=== PATIENT | male | born 1995 | race African-American/Black ===

== ENCOUNTER → 2016-09-18 | Outpatient (REF) | payer OTHER | LOC: M SFHCLERA 09:28 | PROVIDERS: ATTEND Family Medicine | DX: F43.21 Adjustment disorder with depressed mood (principal); Z53.9 Procedure and treatment not carried out, unspecified reason ==

== ENCOUNTER → 2016-10-21 | Outpatient (REF) | payer OTHER | LOC: M SFHCLERA 09:40 | PROVIDERS: ATTEND Family Medicine | DX: F43.21 Adjustment disorder with depressed mood (principal) ==

== ENCOUNTER 2017-02-10 18:00 | Inpatient (IN) | payer OTHER ==
[~2017-02-10] VITALS: Ht 180.3 cm; Wt 74.8 kg
[2017-02-10] MEDS ORDERED: IBUP200C PO (18:26)
[2017-02-10] MEDS ORDERED: PARO-39 PO (18:26)
[2017-02-10] MEDS ORDERED: OXYCODONE/APAP 5MG/325MG(BULK FOR ED) 1 TABLET PO ONE (19:15)
[2017-02-10] MEDS ORDERED: IBUPROFEN 600 MG TAB PO ONE (19:15)
[2017-02-10] MEDS ORDERED: PERCOCET 5MG/325MG TAB As Ordered ONE (19:15)
[2017-02-10] MEDS ORDERED: NORCO, ANEXSIA 5/325MG TABLET (HYDROcodone/ACETAMINOPHEN) PO ONE (19:15)
[2017-02-10 19:33] LABS: BASO % 0.4 % (0.0-1.0); EOS # 0.1 K/mm3 (0.0-0.50); LARGE UNSTAINED CELL # 0.1 K/mm3 (0.0-0.4); LARGE UNSTAINED CELL % 1.5 % (0.0-4.0); LYMPH # 1.9 K/mm3 (1.5-6.5); MEAN CORPUSCULAR HEMOGLOBIN 28.3 pg (27.0-33.0); MEAN CORPUSCULAR VOLUME 85.6 fl (80.0-96.0); MONO # 0.2 K/mm3 (0.0-0.8); MONO % 3.1 % (0.0-5.0); NEUTROPHILS # 3.2 K/mm3 (1.8-7.7); PLATELET COUNT, AUTOMATED 257 k/mm3 (150-450); RED CELL DISTRIBUTION WIDTH 13.2 % (11.5-14.5); WHITE BLOOD COUNT 5.4 K/mm3 (4.0-10.0)
[2017-02-10 19:45] LABS: ANION GAP 8 MEQ/L (8-16); BLOOD UREA NITROGEN 7 MG/DL (7-18); CALCIUM LEVEL 9.8 MG/DL (8.5-10.1); CARBON DIOXIDE LEVEL 25 MEQ/L (21-32); CHLORIDE LEVEL 105 MEQ/L (98-107); CREATININE FOR GFR 1.09 MG/DL (0.70-1.30); GLOMERULAR FILTRATION RATE > 60.0 (>60); GLUCOSE, FASTING 85 MG/DL (70-105); POTASSIUM SERUM 3.9 MEQ/L (3.5-5.1); SODIUM LEVEL 138 MEQ/L (136-145)
[2017-02-10] MEDS ORDERED: NS 1,000 ML IV ONE (20:00)
[2017-02-10] MEDS ORDERED: ISOVUE-370 76% 100ML VIAL (Q9967) As Ordered ONE (20:09)
--- NOTE | 2017-02-10 20:40 | REPUSA ---
CT angiogram of the chest Clinical statement: Chest pain and shortness of breath. Elevated D dimer. Technique: Multiple axial CT images were obtained from the thoracic inlet through the upper abdomen a fter a bolus administration of nonionic intravenous contrast. Coronal and sagittal reconstructions we re also obtained. Comparison: None. Findings: The pulmonary arteries are well-opacified with contrast. There is a intraluminal filling de fect in the subsegmental branches the right lower lobe. The thoracic aorta is unremarkable. Thyroid g land is within normal limits. There is no thoracic lymphadenopathy. There are no pericardial or pleur al effusions. The lungs are clear. Limited imaging of the upper abdomen is unremarkable. There are no suspicious osseous lesions. Impression: Small embolism in a subsegmental branch of the right lower lobe. ER physician was notified of these findings at 8:38 PM on 02/10/2017.
--- NOTE | 2017-02-10 20:54 | ECGEPIP ---
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 Order Number: [id number] Reading MD: Luc Oviedo Measurements Intervals [place] Rate: 58 P: 6 DE: 146 QRS: 51 QRSD: 90 T: 35 QT: 399 QTc: 393 Interpretive Statements SINUS BRADYCARDIA WITH SINUS ARRHYTHMIA MINIMAL VOLTAGE CRITERIA FOR LVH, CONSIDER NORMAL VARIANT EARLY REPOLARIZATION NO PRIORS Electronically Signed On 02-10-2017 20:54:45 EDT by Luc Oviedo
[2017-02-10] MEDS ORDERED: IBUP-1114 PO (20:55)
[2017-02-10] MEDS ORDERED: APIXABAN 5 MG TAB (ELIQUIS) PO ONE (21:00)
[2017-02-10] MEDS ORDERED: PERCOCET 5MG/325MG TAB PO PRN (21:30)
[2017-02-10] MEDS ORDERED: ACETAMINOPHEN TAB 650MG DOSE (2X325MG) PO PRN (21:30)
[2017-02-10] MEDS ORDERED: BISACODYL 5 MG TAB PO PRN (21:30)
[2017-02-10] MEDS ORDERED: ONDANSETRON 4MG/2ML VIAL (J2405) IV PRN (21:30)
[2017-02-10] MEDS ORDERED: ELIQ5TAB PO (21:33)
[2017-02-10 21:58] LABS: INR 1.02
--- NOTE | 2017-02-10 22:03 | HPE ---
DATE OF ADMISSION: 02/10/2017 PRIMARY CARE PROVIDER: Dr. Poon CHIEF COMPLAINT: Chest pain. HISTORY OF PRESENT ILLNESS: The patient is a 21-year-old man who tells me that for the last two weeks he has been experiencing chest pain and tightness in the right side of his chest, as well as a pinching pain on the left side of his chest. He does complain of some associated shortness of breath. Denies taking any medication. He tells me that he has decreased his level of activity secondary to this, it hurts with deep inspiration. He is unable to do push-ups as he normally does. He denies any new medications. He does have tobacco use, a few cigarettes a day intermittently. He denies a family history of blood clots. PAST MEDICAL HISTORY: Depression. PAST SURGICAL HISTORY: None. ALLERGIES: No known drug allergies. HOME MEDICATIONS: - paroxetine 20 mg daily SOCIAL HISTORY: The patient is a casual smoker. Denies any alcohol or illicit drug use. He has a fiance. He lives with his brother, who is an active duty soldier. FAMILY HISTORY: His mother of cardiac in her 40s. He reports that she had numerous myocardial infarctions prior to her last one. REVIEW OF SYSTEMS: Negative other than history of present illness. PHYSICAL EXAMINATION: VITAL SIGNS: Temperature 99.3, pulse 82, respiratory 18, blood pressure 136/69, oxygen saturation 95% on room air. GENERAL: He is a young, pleasant, -[place]uvian male. Sitting up in bed. He does not appear to be in any acute distress. HEENT: Cranial nerves II through XII are grossly intact. He has moist mucous membranes. No elevation of central venous pressure. CARDIOVASCULAR EXAM: S1, S2 regular. He is not tachycardic. RESPIRATORY EXAM: Clear. There is tenderness to palpation at the left intercostal space. ABDOMINAL EXAM: Benign. EXTREMITIES: No clubbing, cyanosis or edema. LABORATORY DATA: WBC 5.4, hemoglobin 14.4, platelet count 257. Chemistry panel: Sodium 138, potassium 3.9, chloride 105, bicarbonate 25, BUN 7, creatinine 1.0. Two sets of cardiac enzymes negative. D-Dimer was elevated at 1162. IMAGING: The patient did have a CT angiography of the chest that revealed an embolism in the subsegmental branch of the right lower lobe. EKG revealed early repolarization. ASSESSMENT AND PLAN: This is a 21-year-old man with pleuritic chest pain and subsegmental pulmonary embolism. 1. Chest pain and pulmonary embolism. Given the patient's presenting symptoms and positive findings on laboratories and imaging, I suspect that the patient should be treated for pulmonary embolism. He will be started on Eliquis. Prescription has been sent to his pharmacy. Patient and family services (PFS) for prior authorization to be obtained. Given that his mother had numerous heart attacks and premature coronary artery disease and his current predicament, I will check an echocardiogram and admit him to the progressive care unit (PCU) and trend his cardiac enzymes. We will also check a duplex of the lower extremities. I have ordered a hypercoagulable workup to be drawn prior to his first administration of Eliquis. He should likely followup with desk top publisher after discharge. I will also check his urine toxicology. There is also the possibility that the patient's left sided chest pain and tenderness in the intercostal may be related to some costochondritis related to doing frequent push-ups. I will provide him with pain medication with ibuprofen and Percocet as needed. 2. Tobacco abuse. Cessation counseling offered. 3. Deep vein thrombosis (DVT) prophylaxis. The patient will be on Eliquis. DISPOSITION: The patient is admitted to the progressive care unit (PCU) to Dr. West's service, who will continue following the patient at 7:00 a.m.
--- NOTE | 2017-02-10 22:06 | REP ---
Clinical: Chest pain . Comparison: None . Technique: PA and lateral. Findings: The mediastinum and cardiac silhouette are normal. The lung merino are clear and without acute consolidation, effusion, or pneumothorax. The skeletal structures are intact and normal. Impression: 1. No acute cardiopulmonary process. Signed by Edinson Gandhi MD 02/10/2017 09:57 P
[2017-02-10 22:31] LABS: BASO % 0.4 % (0.0-1.0); EOS # 0.1 K/mm3 (0.0-0.50); EOS % 1.9 % (0.0-3.0); LARGE UNSTAINED CELL # 0.1 K/mm3 (0.0-0.4); LARGE UNSTAINED CELL % 1.9 % (0.0-4.0); LYMPH # 2.4 K/mm3 (1.5-6.5); LYMPH % 44.4 % (24.0-44.0); MEAN CORPUSCULAR HEMOGLOBIN 28.6 pg (27.0-33.0); MEAN CORPUSCULAR HGB CONC 32.9 g/dl (32.0-36.5); MEAN CORPUSCULAR VOLUME 86.9 fl (80.0-96.0); MONO # 0.2 K/mm3 (0.0-0.8); MONO % 4.1 % (0.0-5.0); NEUTROPHILS # 2.6 K/mm3 (1.8-7.7); NEUTROPHILS % 47.2 % (36.0-66.0); PLATELET COUNT, AUTOMATED 241 k/mm3 (150-450); RED CELL DISTRIBUTION WIDTH 13.2 % (11.5-14.5); WHITE BLOOD COUNT 5.4 K/mm3 (4.0-10.0)
[2017-02-10 22:47] LABS: ANION GAP 9 MEQ/L (8-16); BLOOD UREA NITROGEN 7 MG/DL (7-18); CALCIUM LEVEL 9.8 MG/DL (8.5-10.1); CARBON DIOXIDE LEVEL 23 MEQ/L (21-32); CHLORIDE LEVEL 106 MEQ/L (98-107); CREATININE FOR GFR 1.13 MG/DL (0.70-1.30); GLOMERULAR FILTRATION RATE > 60.0 (>60); GLUCOSE, FASTING 80 MG/DL (70-105); POTASSIUM SERUM 3.6 MEQ/L (3.5-5.1); SODIUM LEVEL 138 MEQ/L (136-145)
[2017-02-10 22:53] LABS: ERYTHROCYTE SEDIMENTATION RATE 7 mm/hr (0-15)
[2017-02-10 23:37] VITALS: BP 142/69
[2017-02-10] MEDS: IBUPROFEN 400 MG TAB PO SCH (23:47)
[2017-02-11 04:05] VITALS: BP 127/67
[2017-02-11] MEDS: IBUPROFEN 400 MG TAB PO SCH (07:21)
[2017-02-11 07:45] VITALS: BP 136/73
[2017-02-11] MEDS ORDERED: PERCOCET PO (08:02)
[2017-02-11] MEDS ORDERED: BISAC5TA PO (08:02)
--- NOTE | 2017-02-11 08:12 | REP ---
Clinical: Positive for PE. Technique: Reese scale and color Doppler evaluation using linear high frequency transducer. Findings: Ultrasound examination of the right and left lower extremity deep venous structures from the common femoral vein to the popliteal vein demonstrates normal compressibility flow and wave patterns in response to respiration and augmentation. There is no evidence for deep venous thrombosis. Impression: No evidence for deep venous thrombosis. Signed by Edinson Gandhi MD 02/11/2017 08:04 A
[2017-02-11] MEDS ORDERED: PARoxetine 20 MG TAB PO SCH (09:00)
[2017-02-11] MEDS ORDERED: APIXABAN 5 MG TAB (ELIQUIS) PO SCH (09:00)
--- NOTE | 2017-02-11 14:10 | DSES ---
DATE OF ADMISSION: 02/10/2017 DATE OF DISCHARGE: 02/11/2017 PRIMARY CARE PROVIDER: Dr. Poon PRIMARY DISCHARGE DIAGNOSES: 1. Small embolism in the subsegmental branch of the right lower lobe. 2. Negative deep vein thrombosis (DVT). DISCHARGE MEDICATIONS: - Eliquis 10 mg twice a day for seven days, 5 mg twice a day, one week supply was given as the patient has no insurance. The patient will need to followup with primary care provider for additional prescription coverage and assistance with Eliquis coverage. - oxycodone/acetaminophen 5/325 mg one tablet every four hours as needed, maximum daily dose of six, dispense #30 - bisacodyl 5 mg daily as needed for constipation, dispense #30 - paroxetine 20 mg daily HOSPITAL COURSE: This is a 21-year-old male with a history of depression who presents with chest pain, tightness right side of the chest with shortness of breath, found on CT to have a small subsegmental pulmonary embolism. He was started on Eliquis. Patient and family services (PFS) was consulted for a one-week free supply via marine geologist. Troponins were negative times four. Hypercoagulable workup pending.
[2017-02-12] MEDS ORDERED: COLA100C3 PO (03:12)
[2017-02-12] MEDS ORDERED: ZOFR4TAB3 PO (03:13)
--- NOTE | 2017-02-12 08:35 | ECGEPIP ---
Stationary ECG Study 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
[2017-02-13] MEDS ORDERED: COLA100C3 PO (14:33)
[2017-02-19 00:07] LABS: PROTEIN C ANTIGEN 78 % (60-150); PROTEIN S ANTIGEN FREE 131 % (57-157); PROTEIN S ANTIGEN TOTAL 101 % (60-150); SJOGREN'S ANTI SS-A <0.2 AI (0.0-0.9); SJOGREN'S ANTI SS-B <0.2 AI (0.0-0.9)
== END 2017-02-11 10:59 | disposition home or self-care (01) | DRG 134 ==
LOC: M ED 20:34 → M ED INP 21:30 → M PCU 23:30
PROVIDERS: ADMIT Internal Medicine; ATTEND General Practice
DX: I26.99 Other pulmonary embolism without acute cor pulmonale (principal); F17.200 Nicotine dependence, unspecified, uncomplicated; Z79.899 Other long term (current) drug therapy

== ENCOUNTER 2017-02-11 22:14 | Emergency (ER) | payer OTHER ==
[~2017-02-11] VITALS: Ht 180.3 cm; Wt 74.8 kg
[~2017-02-11 22:14] MED LIST: BISAC5TA PO; ELIQ5TAB PO; IBUP-1114 PO; IBUP200C PO; PARO-39 PO; PERCOCET PO
[2017-02-12] MEDS ORDERED: ONDANSETRON 4MG/2ML VIAL (J2405) IV ONE
[2017-02-12] MEDS ORDERED: NS 500 ML IV ONE
[2017-02-12 00:30] LABS: BASO % 0.2 % (0.0-1.0); EOS # 0.2 K/mm3 (0.0-0.50); LARGE UNSTAINED CELL # 0.1 K/mm3 (0.0-0.4); LARGE UNSTAINED CELL % 1.8 % (0.0-4.0); LYMPH # 1.8 K/mm3 (1.5-6.5); LYMPH % 39.9 % (24.0-44.0); MEAN CORPUSCULAR HEMOGLOBIN 28.4 pg (27.0-33.0); MEAN CORPUSCULAR HGB CONC 33.2 g/dl (32.0-36.5); MEAN CORPUSCULAR VOLUME 85.6 fl (80.0-96.0); MONO # 0.2 K/mm3 (0.0-0.8); NEUTROPHILS # 2.1 K/mm3 (1.8-7.7); PLATELET COUNT, AUTOMATED 223 k/mm3 (150-450); WHITE BLOOD COUNT 4.3 K/mm3 (4.0-10.0)
[2017-02-12] MEDS ORDERED: PERCOCET 5MG/325MG TAB PO ONE (00:30)
[2017-02-12] MEDS ORDERED: MAGNESIUM CITRATE 300 ML BTL PO ONE (00:45)
[2017-02-12] MEDS ORDERED: FLEET ENEMA PR ONE (00:45)
[2017-02-12 00:53] LABS: ALBUMIN 4.1 GM/DL (3.2-5.2); ALBUMIN/GLOBULIN RATIO 1.21 (1.00-1.93); ALKALINE PHOSPHATASE 99 U/L (45-117); ALT/SGPT 25 U/L (12-78); ANION GAP 7 MEQ/L (8-16); AST/SGOT 22 U/L (15-37); BILIRUBIN,TOTAL 0.4 MG/DL (0.2-1.0); BLOOD UREA NITROGEN 13 MG/DL (7-18); CALCIUM LEVEL 9.2 MG/DL (8.5-10.1); CARBON DIOXIDE LEVEL 27 MEQ/L (21-32); CHLORIDE LEVEL 105 MEQ/L (98-107); CREATININE FOR GFR 1.18 MG/DL (0.70-1.30); GLOMERULAR FILTRATION RATE > 60.0 (>60); GLUCOSE, FASTING 97 MG/DL (70-105); SODIUM LEVEL 139 MEQ/L (136-145); TOTAL PROTEIN 7.5 GM/DL (6.4-8.2)
--- NOTE | 2017-02-12 01:09 | REP ---
Clinical: Acute abdominal pain. Technique: Upright view of the chest with supine and upright views of the abdomen and pelvis. Findings: Frontal upright view of the chest demonstrates no acute cardiopulmonary process or free air below the diaphragm to suspect pneumoperitoneum. Supine and upright views of the abdomen and pelvis demonstrate nonspecific bowel gas pattern without obstruction or perforation. No organomegaly. No abnormal calcifications. Skeletal structures normal for age. Impression: Nonspecific bowel gas pattern. Signed by Edinson Gandhi MD 02/12/2017 01:00 A
[2017-02-12] MEDS ORDERED: COLA100C3 PO (03:12)
[2017-02-12] MEDS ORDERED: ZOFR4TAB3 PO (03:13)
[2017-02-12 03:14] VITALS: BP 122/65
[2017-02-13] MEDS ORDERED: ELIQ5TAB PO (14:31)
[2017-02-13] MEDS ORDERED: OXYC1TAB23 PO (14:33)
[2017-02-13] MEDS ORDERED: BISAC5TA PO (14:33)
[2017-02-13] MEDS ORDERED: PARO20TA3 PO (14:33)
[2017-02-13] MEDS ORDERED: COLA100C3 PO (14:33)
[2017-02-13] MEDS ORDERED: ZOFR4TAB3 PO (14:33)
== END 2017-02-12 03:44 | disposition home or self-care (01) ==
LOC: M ED 23:12
DX: K59.00 Constipation, unspecified (principal); I26.99 Other pulmonary embolism without acute cor pulmonale; F33.9 Major depressive disorder, recurrent, unspecified; F17.210 Nicotine dependence, cigarettes, uncomplicated; Z82.49 Family history of ischemic heart disease and other diseases of the circulatory system

== ENCOUNTER 2017-02-13 12:02 | Inpatient (IN) | payer MEDICAID, OTHER ==
[~2017-02-13] VITALS: Ht 175.3 cm; Wt 73.4 kg
[~2017-02-13 12:02] MED LIST changes: +COLA100C5 PO; -IBUP200C PO; +IBUP200C10 PO; -PARO-39 PO; +PARO20TA4 PO; +ZOFR4TAB3 PO
[2017-02-13] MEDS ORDERED: ASPIRIN 81 MG CHEW TABLET PO ONE (12:15)
[2017-02-13 12:38] LABS: BASO % 0.2 % (0.0-1.0); EOS # 0.1 K/mm3 (0.0-0.50); EOS % 3.8 % (0.0-3.0); LARGE UNSTAINED CELL # 0.1 K/mm3 (0.0-0.4); LARGE UNSTAINED CELL % 2.7 % (0.0-4.0); LYMPH # 1.6 K/mm3 (1.5-6.5); LYMPH % 43.4 % (24.0-44.0); MEAN CORPUSCULAR HEMOGLOBIN 28.6 pg (27.0-33.0); MEAN CORPUSCULAR HGB CONC 32.9 g/dl (32.0-36.5); MEAN CORPUSCULAR VOLUME 86.8 fl (80.0-96.0); MONO # 0.1 K/mm3 (0.0-0.8); NEUTROPHILS # 1.7 K/mm3 (1.8-7.7); NEUTROPHILS % 45.9 % (36.0-66.0); PLATELET COUNT, AUTOMATED 227 k/mm3 (150-450); RED CELL DISTRIBUTION WIDTH 12.8 % (11.5-14.5); WHITE BLOOD COUNT 3.6 K/mm3 (4.0-10.0)
[2017-02-13 13:06] LABS: ANION GAP 5 MEQ/L (8-16); BLOOD UREA NITROGEN 14 MG/DL (7-18); CARBON DIOXIDE LEVEL 28 MEQ/L (21-32); CHLORIDE LEVEL 107 MEQ/L (98-107); CREATININE FOR GFR 1.29 MG/DL (0.70-1.30); GLOMERULAR FILTRATION RATE > 60.0 (>60); GLUCOSE, FASTING 91 MG/DL (70-105); SODIUM LEVEL 140 MEQ/L (136-145)
[2017-02-13 14:20] LABS: MAGNESIUM LEVEL 2.3 MG/DL (1.8-2.4)
[2017-02-13] MEDS ORDERED: ELIQ5TAB PO (14:31)
[2017-02-13] MEDS ORDERED: BISAC5TA PO (14:33)
[2017-02-13] MEDS ORDERED: COLA100C5 PO (14:33)
[2017-02-13] MEDS ORDERED: ZOFR4TAB3 PO (14:33)
[2017-02-13] MEDS ORDERED: PARO20TA3 PO (14:33)
[2017-02-13] MEDS ORDERED: OXYC1TAB23 PO (14:33)
--- NOTE | 2017-02-13 14:43 | REP ---
REASON: Chest pain. COMPARISON: 02/13/2017. FINDINGS: The technique utilized in obtaining the radiograph has magnified the cardiac silhouette and accentuated the interstitial markings. The superior mediastinal structures are midline. The cardiac silhouette is unremarkable in size, shape, and position. The diaphragmatic surfaces of the lungs are regular, and the costophrenic angles are clear. The pulmonary merino are clear. The imaged osseous structures are intact. IMPRESSION: There is no acute cardiopulmonary disease. No change from prior exam. The cardiac silhouette is magnified by technique. Mild cardiomegaly could not be excluded by this portable exam. Signed by Sanjeev Fuentes DO 02/13/2017 03:23 P
[2017-02-13] MEDS ORDERED: BISACODYL 5 MG TAB PO PRN (17:15)
[2017-02-13] MEDS ORDERED: ONDANSETRON 4 MG ORAL DISINTEGRATING TAB (S0181) PO PRN (17:15)
--- NOTE | 2017-02-13 18:17 | HPEPDOC ---
General Date of Admission Feb 13, 2017 at 16:32 Primary Care Physician: ANNELIESE HORTON MD Attending Physician: FABRICIO RODRIGUEZ MD Chief Complaint The patient is a 21-year-old male admitted with a reason for visit of Syncope. Source: Patient, Other (girlfriend) Exam Limitations: No limitations History of Present Illness PRIMARY CARE PROVIDER: Dr. Anneliese Horton CHIEF COMPLAINT: multiple episodes of syncope chest pain/pressure HISTORY OF PRESENT ILLNESS: This is a 21-year-old -[place] male with a past medical history of anxiety, depression, PTSD, tobacco use disorder, and new/recent onset of pulmonary embolism diagnosed 02/10-02/11 [facility] hospitalization previously,who presents to [facility] ED for chief complaint of multiple episodes of "blacking out" as well as chest pain/pressure that has been worsening in intensity. States chest discomfort began last year in June and he informed his PCP Dr. Horton in between the months of August and November. PCP reportedly thought chest discomfort may have been due to anxiety and had started patient on Paxil 10 mg. Patient has been compliant with his medication, and is still taking this medication. States this does not help his chest discomfort as he thought it would have and has even been given an increased dose of 20 mg which he still is taking. Patient reports that it wasn' t until about 3 weeks ago that he had developed chest pain along with his original chest discomfort. States his chest pain comes on with deep inspiration , coughing, sneezing, reaching out for objects. Pain is a throbbing and pressure like pain that does not radiate anywhere. It is located in his left anterior chest as well as his mid-chest. Pain at times subsides after taking ibuprofen. However, now, patient reports that pain is even sometimes uncontrolled with Percocet. Patient's girlfriend reports that she can even see patient's left-sided chest with "physical palpitations." States he also had an episode of passing out on the stairs one time in his house and was lying down on the platform with his legs on the platform and his on the last 3 steps. This occurred randomly within the last few weeks. He then messaged friend to bring him to the emergency department on February 10. Patient was found to have pleuritic chest pain at that time, and a pulmonary embolism of the subsegmental branch of the right lower lobe of the lung on CT angiography of the chest. His d -dimer was elevated at 1162. A duplex ultrasound of the lower extremities had shown no evidence of DVT. Troponins were negative 4. Hypercoagulable workup was done and is pending now. Patient was started on eliquis prior to discharge on February 11. When patient had gotten home, he threw up his breakfast, drank water, sat down, became lightheaded, and passed out in his bedroom for 1-2 hours after he woke up in a sweat and with sore muscles in his upper extremities , gluteus muscles and thighs. Today, patient states that he passed out at a bank in his car around 11 AM. States after leaving the bank, his legs were feeling weak and when he got into the car, he had turned the rudolph for his girlfriend to start the car, and he felt exhausted, and blacked out. His girlfriend reports the patient had blacked out and lost consciousness around 3-4 in the car. Then, girlfriend brought the patient into the [facility] ED. Patient had been given 1 dose of 324 mg of aspirin chewable tablet once. Girlfriend also reports that after last hospitalization, the IV site began to profusely bleed and was not clotting on his left arm, and his bandage was soaked with blood. Patient also states that his legs are weaker, he feels shaky at times, has chest pressure, he feels tired and weak,. He goes in and out of consciousness. Girlfriend states that patient becomes a bit confused after waking up and there is lapse of time with some delay in his thoughts/speech. Girlfriend denies witnessing any movement of the patient's extremities when he blacks out or passes out. Patient and girlfriend deny any bowel or bladder incontinence. Denies any focal neurologic deficits such as blurred vision or unilateral weakness of any extremity. Denies facial droop, denies blurry vision , denies having any other recent falls that he can recall. Patient admits that he feels his jaw trembling today. Patient states that he is out of work for health issues. Patient admits to shortness of breath currently and does not recall when that began. Admits to feeling dizzy at times. Denies dizziness currently. In addition, patient reports wiping some blood on the toilet paper after a bowel movement at times, but not all the time. Currently, denies fevers , chills, nausea, vomiting, abdominal pain, diarrhea, weakness in extremities now, runny nose, sore throat, cough, urinary symptoms: polyuria. Admits to feeling a little thirsty. Admits he stays well hydrated with gatorade and other liquid drinks. In addition, admits to feeling pressure in his head and having a headache that radiates all around his head and to the back of his neck especially the L side of the neck. Denies neck stiffness. Admits that he believes he's gotten both meningitis shots. Last but not least, patient admits that he feels dizzy when getting up from the bed or a chair at times. This dizziness began 4 days ago when patient was admitted to [facility] on 02/10/17. HOME MEDICATIONS: Eliquis was 5 mg tablet by mouth as directed, 10 mg twice a day for 7 days, then 5 mg twice per day Percocet 5 mg/325 mg tablet 1 tab by mouth every 4 hours when necessary for moderate pain, not to exceed 6 per day Bisacodyl 5 mg tablet by mouth daily when necessary constipation Docusate sodium 100 mg capsule by mouth daily Zofran 4 mg tablet by mouth every 4 hours when necessary nausea Fluoxetine hydrochloride 20 mg tab by mouth daily ALLERGIES: No known drug allergies. PAST MEDICAL HISTORY: Anxiety Depression PTSD Tobacco use disorder Pulmonary embolism new-onset on Eliquis 02/10/17 PAST SURGICAL HISTORY: None. SOCIAL HISTORY: Smokes a few cigarettes casually. Admits to drinking EtOH to 3 times a month. Admits to smoking marijuana only 1 time a day for at most 5 days in a week. Denies any other illicit drug use. Has a girlfriend. Lives with his brother who is an active duty soldier. FAMILY HISTORY: Mother: from an RI at age 48, reportedly has a history of numerous myocardial infarctions prior to her last one. Strokes and MIs to run in the family. Brother: Has a heart murmur CODE STATUS: FULL CODE Review of systems are negative except for those stated above. PHYSICAL EXAMINATION: Vitals: T: 97.9 BP: 156/99 RR: 20 P: 71 O2 Saturation: 97% room air General: Awake, alert, oriented 3. Pleasant and cooperative young adults male. Resting comfortably in bed in no acute distress. HEENT: Head: normocephalic, atraumatic. Eyes: PERRL, sclera are nonicteric. Ears: TMs intact with normal light reflex bilaterally. Nose: No external lesions , Throat: no pharyngeal erythema or exudates, moist buccal mucosa. Tongue is a bit white. Neck: Supple. Normal ROM. No cervical LAD bilaterally and no thyromegaly. + Tenderness to palpation of his paraspinal muscles especially on the L paraspinal muscles of neck. Tense and tight paraspinal muscles on the L side. Respiratory: clear to auscultation bilaterally with no wheezes, rales, or rhonchi. Cardiovascular: regular rate and rhythm, with no murmurs, rubs or gallops. No murmurs appreciated at aortic, pulmonic, tricuspid, or mitral areas. Chest: Symmetrical chest rise bilaterally. +Reproducible tenderness to palpation of L anterior chest wall, but pressing on anterior chest reproduces pain deeper in the lateral L chest. Abdomen: soft and a bit tense (likely due to muscular exercise), nondistended, no hepatosplenomegaly appreciated. Bowel sounds present. +Tenderness to palpation of the LLQ and mid-abdomen--nonspecific. No rebound or guarding. Extremities: 5/5 strength in upper and lower extremities bilaterally, no swelling in either lower extremity bilaterally. Musculoskeletal: normal ROM. Neurological: CN 2-12 intact bilaterally. No focal neurologic deficits appreciated. Integumentary: skin free from rashes, lesions, abrasions Vascular: +2 radial and dorsalis pedis pulses palpable and symmetrical bilaterally LABORATORY DATA: Significant WBC 3.6, hemoglobin of 13.6, neutropenia of 1.7, eosinophilia of 2.8 , CPK of 397. Troponin was negative 1. BNP was less than 5.0 Urine drug tox pending. ELECTROCARDIOGRAM: Showed sinus rhythm, minimal voltage criteria for left ventricular hypertrophy or normal variant, early repolarization, and a ventricular rate of 63 bpm. Borderline EKG. Personally reviewed. RADIOLOGY: CT of the head and chest x-ray were both negative. ASSESSMENT: This is a 21-year-old male with past medical history significant for anxiety, depression, PTSD, tobacco use disorder, and pulmonary embolism diagnosed on February 10 to February 11 hospitalization at [facility], who is presenting again to [facility] for several random syncopal episodes and worsening anterior and left-sided chest pressure/pain. PLAN: 1. Syncope: Admit to PCU with automatic dry starch operator. Obtain CT scan of the head without contrast. Obtain echocardiogram, EEG, orthostatics, EKG tomorrow morning , and cycle cardiac markers 2 more times. Every 6-8 hours. 2. Chest pain: Atypical angina. Rule out ACS. Obtain 2 more sets of cardiac markers. Troponin negative 1. CK-MB negative 1. CPK elevated at 397. Obtain urine toxicology screen as well as symptoms can be due to drug-related toxicity. 3. Pulmonary embolism: Hemodynamically stable. Coagulopathy workup pending from last admission. Continue eliquis. 4. Elevated CPK: Patient is reported to work out and exercise a lot. Return CPK level daily. Elevated CPK can be secondary to PE. 5. Pancytopenia, anemia, neutropenia: Hemoglobin of 13.6, WBC of 3.6, neutropenia 1.7, We'll obtain iron studies, vitamin B12 level, folate level, fecal occult blood test, and a peripheral smear. 6. Anxiety/Depression/PTSD: Continue Paxil. 7. Tobacco use disorder: Plan to consult for smoking cessation. 8. Continue home medications. DVT prophylaxis: Request Immunizations as per protocol FULL CODE STATUS My preceptor for this patient encounter was Dr. Fabricio Rodriguez, and was physically present in the building during the encounter and was fully available. As needed , all aspects of the patient interview, examination, medical decision making process, and medical care plan development were reviewed and approved by the preceptor. Preceptor is aware and concurs with the plan as stated in the body of this note and will attest to such by his/her cosignature. Home Medications Scheduled Apixaban Base (Eliquis) 5 Mg Tab, 10 MG PO BID, (Reported) FILLED 02/11/17, TAKE 10MG BID FOR 7 DAYS THEN TAKE 5MG BID Docusate Sodium (Colace) 100 Mg Cap, 100 MG PO DAILY, (Reported) Paroxetine (Paroxetine HCl) 20 Mg Tab, 20 MG PO DAILY, (Reported) Scheduled PRN Bisacodyl (Bisacodyl EC) 5 Mg Tab, 5 MG PO DAILY PRN for CONSTIPATION, (Reported ) Ondansetron (Zofran Odt) 4 Mg Tab, 4 MG PO Q4H PRN for NAUSEA, (Reported) Oxycodone/Acetaminophen (Oxycodone/Acetaminophen 5-325 mg) 1 Tab Tab, 1 TAB PO Q4H PRN for PAIN, (Reported) Allergies Coded Allergies: No Known Allergies (Unverified , 02/13/17) Vital Signs Vital Signs Date Time Temp Pulse Resp B/P (MAP) Pulse Ox O2 Delivery O2 Flow Rate FiO2 02/13/17 17:47 60 18 02/13/17 17:41 143/72 (95) 02/13/17 14:17 96 02/13/17 12:14 97.9 Room Air Laboratory Data Labs 24H Laboratory Tests 2 02/13/17 12:22: White Blood Count 3.6L, Red Blood Count 4.75, Hemoglobin 13.6L, Hematocrit 41.2L , Mean Corpuscular Volume 86.8, Mean Corpuscular Hemoglobin 28.6, Mean Corpuscular Hemoglobin Concent 32.9, Red Cell Distribution Width 12.8, Platelet Count 227, Neutrophils (%) (Auto) 45.9, Lymphocytes (%) (Auto) 43.4, Monocytes ( %) (Auto) 4.0, Eosinophils (%) (Auto) 3.8H, Basophils (%) (Auto) 0.2, Neutrophils # (Auto) 1.7L, Lymphocytes # (Auto) 1.6, Monocytes # (Auto) 0.1, Eosinophils # (Auto) 0.1, Basophils # (Auto) 0.0, Large Unclassified Cells % 2.7 , Large Unclassified Cells # 0.1, Anion Gap 5L, Glomerular Filtration Rate > 60.0, Blood Urea Nitrogen 14, Creatinine 1.29, Sodium Level 140, Potassium Level 4.0, Chloride Level 107, Carbon Dioxide Level 28, Calcium Level 9.0, Total Creatine Kinase 397H, Magnesium Level 2.3, Creatine Kinase MB 1.2, Creatine Kinase MB Relative Index 0.30, Troponin I < 0.02, B-Type Natriuretic Peptide < 5.0 CBC/BMP Laboratory Tests 02/13/17 12:22 Red Blood Count 4.75, Mean Corpuscular Volume 86.8, Mean Corpuscular Hemoglobin 28.6, Mean Corpuscular Hemoglobin Concent 32.9, Red Cell Distribution Width 12.8 , Neutrophils (%) (Auto) 45.9, Lymphocytes (%) (Auto) 43.4, Monocytes (%) (Auto ) 4.0, Eosinophils (%) (Auto) 3.8 H, Basophils (%) (Auto) 0.2, Neutrophils # ( Auto) 1.7 L, Lymphocytes # (Auto) 1.6, Monocytes # (Auto) 0.1, Eosinophils # ( Auto) 0.1, Basophils # (Auto) 0.0, Calcium Level 9.0, Total Creatine Kinase 397 H Plan / VTE VTE Prophylaxis Ordered?: No (patient on eliquis) LOUISE CARBALLO OGME-1 Feb 13, 2017 18:17
--- NOTE | 2017-02-13 18:31 | REP ---
CT Head without contrast HISTORY: Syncope COMPARISON: None There is no intraparenchymal hemorrhage, acute infarct, mass or midline shift. The ventricular system is normal in appearance. Cavum septi pellucidi and vergae are present. There is no extra cerebral collection. There is no fracture. The visualized sinuses are clear. IMPRESSION: There is no intracranial lesion. Signed by Prudencio Silver MD 02/13/2017 06:23 P
[2017-02-13 18:37] LABS: METHADONE URINE NEGATIVE (NEGATIVE)
[2017-02-13] MEDS: APIXABAN 5 MG TAB (ELIQUIS) PO SCH (19:46)
[2017-02-13] MEDS: PERCOCET 5MG/325MG TAB PO PRN ×2 (19:47→23:49)
[2017-02-13 19:52] VITALS: BP_SYST 134; BP_SYST 139; BP_SYST 145; BP_DIAS 65; BP_DIAS 69
[2017-02-13 20:20] LABS: RETIC HEMOGLOBIN CONTENT CHr 30.7 PG (24-36); RETICULOCYTE ABSOLUTE ADVIA212 73 x10(9)/L (17-77)
[2017-02-13 20:27] LABS: REASON FOR REVIEW COMPREHENSIVE REVIEW
[2017-02-13 20:42] LABS: PERCENT SATURATION 28.4 % (19.7-37.4)
[2017-02-14 00:02] VITALS: BP 149/87
[2017-02-14 04:12] VITALS: BP 127/67
[2017-02-14 04:20] LABS: BASO % 0.5 % (0.0-1.0); EOS # 0.2 K/mm3 (0.0-0.50); EOS % 4.6 % (0.0-3.0); LARGE UNSTAINED CELL # 0.1 K/mm3 (0.0-0.4); LARGE UNSTAINED CELL % 2.3 % (0.0-4.0); LYMPH # 1.9 K/mm3 (1.5-6.5); LYMPH % 52.2 % (24.0-44.0); MEAN CORPUSCULAR HEMOGLOBIN 28.4 pg (27.0-33.0); MEAN CORPUSCULAR HGB CONC 32.5 g/dl (32.0-36.5); MEAN CORPUSCULAR VOLUME 87.5 fl (80.0-96.0); MONO # 0.2 K/mm3 (0.0-0.8); MONO % 4.4 % (0.0-5.0); NEUTROPHILS # 1.3 K/mm3 (1.8-7.7); NEUTROPHILS % 36.1 % (36.0-66.0); PLATELET COUNT, AUTOMATED 224 k/mm3 (150-450); RED CELL DISTRIBUTION WIDTH 12.9 % (11.5-14.5); WHITE BLOOD COUNT 3.7 K/mm3 (4.0-10.0)
[2017-02-14 04:35] LABS: ALBUMIN 3.7 GM/DL (3.2-5.2); ALBUMIN/GLOBULIN RATIO 1.03 (1.00-1.93); ALKALINE PHOSPHATASE 96 U/L (45-117); ALT/SGPT 26 U/L (12-78); ANION GAP 6 MEQ/L (8-16); AST/SGOT 20 U/L (15-37); BILIRUBIN,TOTAL 0.2 MG/DL (0.2-1.0); BLOOD UREA NITROGEN 12 MG/DL (7-18); CALCIUM LEVEL 8.3 MG/DL (8.5-10.1); CARBON DIOXIDE LEVEL 28 MEQ/L (21-32); CHLORIDE LEVEL 106 MEQ/L (98-107); CREATININE FOR GFR 1.24 MG/DL (0.70-1.30); GLOMERULAR FILTRATION RATE > 60.0 (>60); GLUCOSE, FASTING 83 MG/DL (70-105); SODIUM LEVEL 140 MEQ/L (136-145); TOTAL PROTEIN 7.3 GM/DL (6.4-8.2)
--- NOTE | 2017-02-14 07:27 | ECGEPIP ---
Stationary ECG Study [facility] - ED Test Date: 2017-02-13 Pat Name: PARADISE CRAFT Department: Room: - Gender: M Patient Services Representative: peggy : 1995 Requested By: MARIA ESTHER Prieto Order Number: [id number] Reading MD: Jesenia Og Measurements Intervals [place] Rate: 63 P: 60 AR: 166 QRS: 31 QRSD: 99 T: 41 QT: 393 QTc: 405 Interpretive Statements SINUS RHYTHM MINIMAL VOLTAGE CRITERIA FOR LVH, CONSIDER NORMAL VARIANT EARLY REPOLARIZATION INCREASED RATE 02/10/17 Electronically Signed On 02-14-2017 7:27:00 EDT by Jesenia Og
[2017-02-14] MEDS: APIXABAN 5 MG TAB (ELIQUIS) PO SCH ×2 (08:49→19:29)
[2017-02-14] MEDS ORDERED: DOCUSATE SODIUM 100 MG CAP PO SCH (09:00)
[2017-02-14] MEDS ORDERED: PARoxetine 20 MG TAB PO SCH (09:00)
[2017-02-14] MEDS: PERCOCET 5MG/325MG TAB PO PRN ×2 (09:36→16:58)
[2017-02-14 13:45] VITALS: BP_SYST 139; BP_SYST 144; BP_SYST 149; BP_DIAS 80; BP_DIAS 86
[2017-02-14 16:00] VITALS: BP 167/77
[2017-02-14] MEDS ORDERED: PARoxetine 20 MG TAB PO ONE (17:00)
--- NOTE | 2017-02-14 19:03 | IPNPDOC ---
Subjective Date Seen The patient was seen on 02/14/17. Subjective Chief Complaint/HPI The patient is a 21-year-old male admitted with a reason for visit of Syncope. General: Reports: Chills Assessment /Plan Plan/VTE VTE Prophylaxis Ordered?: No (patient on eliquis) VS, I&O, 24H, Fishbone Vital Signs/I&O Vital Signs Date Time Temp Pulse Resp B/P (MAP) Pulse Ox O2 Delivery O2 Flow Rate FiO2 02/14/17 17:28 20 Room Air 02/14/17 16:00 98.7 72 167/77 (107) 99 I&O- Last 24 Hours up to 6 AM 02/14/17 06:00 Intake Total 960 ml Output Total 250 ml Balance 710 ml Laboratory Data 24H LABS Laboratory Tests 2 02/13/17 19:58: Differential Slide Review Report, Differential Pathologist's Review COMPREHENSIVE REVIEW, Peripheral Blood Smear Path Consult PERIPHERAL SMEAR, Absolute Reticulocyte Count 73, Percent Reticulocyte Count 1.50, Reticulocyte Hgb Content (CHr) 30.7, Iron Level 97, Total Iron Binding Capacity 341, Transferrin % Saturation 28.4, Ferritin 71, Total Creatine Kinase 391H, Creatine Kinase MB 1.4, Creatine Kinase MB Relative Index 0.35, Troponin I < 0.02 02/14/17 03:48: Total Creatine Kinase 334H, Creatine Kinase MB 1.4, Creatine Kinase MB Relative Index 0.41, Troponin I < 0.02, Anion Gap 6L, Glomerular Filtration Rate > 60.0, Blood Urea Nitrogen 12, Creatinine 1.24, Sodium Level 140, Potassium Level 4.0, Chloride Level 106, Carbon Dioxide Level 28, Calcium Level 8.3L, Aspartate Amino Transf (AST/SGOT) 20, Alanine Aminotransferase (ALT/SGPT) 26, Alkaline Phosphatase 96, Total Bilirubin 0.2, Total Protein 7.3, Albumin 3.7, Magnesium Level 2.0, Albumin/Globulin Ratio 1.03 02/14/17 03:49: White Blood Count 3.7L, Red Blood Count 4.68, Hemoglobin 13.3L, Hematocrit 40.9L , Mean Corpuscular Volume 87.5, Mean Corpuscular Hemoglobin 28.4, Mean Corpuscular Hemoglobin Concent 32.5, Red Cell Distribution Width 12.9, Platelet Count 224, Neutrophils (%) (Auto) 36.1, Lymphocytes (%) (Auto) 52.2H, Monocytes (%) (Auto) 4.4, Eosinophils (%) (Auto) 4.6H, Basophils (%) (Auto) 0.5, Neutrophils # (Auto) 1.3L, Lymphocytes # (Auto) 1.9, Monocytes # (Auto) 0.2, Eosinophils # (Auto) 0.2, Basophils # (Auto) 0.0, Large Unclassified Cells % 2.3 , Large Unclassified Cells # 0.1 CBC/BMP Laboratory Tests 02/14/17 03:48 Calcium Level 8.3 L, Aspartate Amino Transf (AST/SGOT) 20, Alanine Aminotransferase (ALT/SGPT) 26, Total Creatine Kinase 334 H, Alkaline Phosphatase 96, Total Bilirubin 0.2, Total Protein 7.3, Albumin 3.7 02/14/17 03:49 Red Blood Count 4.68, Mean Corpuscular Volume 87.5, Mean Corpuscular Hemoglobin 28.4, Mean Corpuscular Hemoglobin Concent 32.5, Red Cell Distribution Width 12.9 , Neutrophils (%) (Auto) 36.1, Lymphocytes (%) (Auto) 52.2 H, Monocytes (%) ( Auto) 4.4, Eosinophils (%) (Auto) 4.6 H, Basophils (%) (Auto) 0.5, Neutrophils # (Auto) 1.3 L, Lymphocytes # (Auto) 1.9, Monocytes # (Auto) 0.2, Eosinophils # (Auto) 0.2, Basophils # (Auto) 0.0 LOUISE MIGUEL MD Feb 14, 2017 19:03
[2017-02-14 19:52] VITALS: BP 147/80
--- NOTE | 2017-02-14 20:37 | IPNPDOC ---
Subjective Date Seen The patient was seen on 02/14/17. Subjective Chief Complaint/HPI The patient is a 21-year-old male admitted with a reason for visit of Syncope. Events since last encounter Patient reports still having some chest tightness. Patient points to the center of his chest. He states it occurs sometimes with his heartbeat. Rates the tightness at 5 out of 10. Says it has been 6 out of 10 before. Patient also complains of left chest pain. He is able to re-created when he pushes on it. Patient did complain of some shortness of breath and hurts with full breath. Shortness of breath is improved since being in the ER. Patient denies nausea at this time. No vomiting in the ER. Patient's very tired and did not sleep well last night. General: Denies: Chills Constitutional: Denies: Chills, Fever Eyes: Denies: Vision change ENT: Denies: Head Aches Skin: Denies: Rash, Lesions Pulmonary: Denies: Cough Cardiovascular: Reports: Chest Pain (left side), Denies: Palpitations Gastrointestinal: Denies: Nausea, Vomiting, Abdominal Pain Genitourinary: Denies: Dysuria, Frequency Neurological: Denies: Weakness, Numbness, Change in speech, Confusion Psych: Reports: Mood Normal Objective Physical Examination General Exam: Positive: Alert, Cooperative, No Acute Distress Eye Exam: Positive: PERRLA, EOMI ENT Exam: Positive: Atraumatic, Mucous membr. moist/pink Neck Exam: Positive: Supple, Negative: JVD, thyromegaly Chest Exam: Positive: Clear to auscultation, Normal air movement Heart Exam: Positive: Rate Normal, Normal S1, Normal S2, Negative: Murmurs, Rubs Telemetry: Positive: No significant arrhythmia Abdomen Exam: Positive: Normal bowel sounds, Soft, Negative: Tenderness, Hepatospenomegaly Extremity Exam: Positive: Normal pulses, Negative: Clubbing, Cyanosis, Edema Skin Exam: Positive: Nl turgor and temperature, Negative: Rash, Breakdown Neuro Exam: Positive: Normal Gait, Normal Speech Psych Exam: Positive: Mental status NL, Oriented x 3 Assessment /Plan Assessment Had lengthy discussion with patient regarding workup for syncope and next steps. Patient was starting school for the summer on Thursday and was concerned with this. Patient had previously taken off time for anxiety depression. Patient was worried about taking the Paxil. Patient has been regular taking Paxil was worried now that he has a pulmonary embolism. Also discussed causes of pulmonary embolism and treatment of clot. Discussed with patient why Paxil may be beneficial to him. Patient agreed to restarting the Paxil. Patient initially refused Paxil today. Problems (1) Syncope Status: Acute Problem Text: Patient had reported blacking outs are passing out several times previous day. Has not happened since being in the ER. Patient was very fatigued due to not sleeping well. Denies lightheadedness and dizziness on exam. Patient doesn't have any significant past medical history to indicate causes syncope. Echocardiogram was ordered as well as an EEG. Results are pending. (2) Chest pain Status: Acute Problem Text: Initial cardiac labs were negative as well as repeats. Initial EKG did show early repolarization. Patient's mother of a myocardial infarction when patient was 6 years old. (3) Pulmonary embolism Problem Text: Patient was recently admitted to [facility] and diagnosed with pulmonary embolism on CTA. Patient was started on Elliquis. (4) Constipation Status: Acute Problem Text: Patient reports having a history of constipation and sometimes takes medications to help with this. Continue patient's home medications as needed. (5) Depression Problem Text: Patient had been on Paxil for several months for depression and adjustment disorder. Had lengthy discussion with patient today regarding patient 's past. Patient reported having mother diet very early in life. He also reported last year having his roommate while in college. This on top of going back to college and restarting his life has been very stressful and anxiety provoking last few months. She went on to PCP for some help the prescribed Paxil. Patient initially refused Paxil today but after discussion patient agreed to restarting Paxil and continuing at this time. Plan/VTE VTE Prophylaxis Ordered?: Yes (patient on eliquis) VS, I&O, 24H, Fishbone Vital Signs/I&O Vital Signs Date Time Temp Pulse Resp B/P (MAP) Pulse Ox O2 Delivery O2 Flow Rate FiO2 02/14/17 09:36 18 Room Air 02/14/17 08:57 02/14/17 08:46 98.0 62 100 I&O- Last 24 Hours up to 6 AM 02/14/17 06:00 Intake Total 960 ml Output Total 250 ml Balance 710 ml Laboratory Data 24H LABS Laboratory Tests 2 02/13/17 12:22: White Blood Count 3.6L, Red Blood Count 4.75, Hemoglobin 13.6L, Hematocrit 41.2L , Mean Corpuscular Volume 86.8, Mean Corpuscular Hemoglobin 28.6, Mean Corpuscular Hemoglobin Concent 32.9, Red Cell Distribution Width 12.8, Platelet Count 227, Neutrophils (%) (Auto) 45.9, Lymphocytes (%) (Auto) 43.4, Monocytes ( %) (Auto) 4.0, Eosinophils (%) (Auto) 3.8H, Basophils (%) (Auto) 0.2, Neutrophils # (Auto) 1.7L, Lymphocytes # (Auto) 1.6, Monocytes # (Auto) 0.1, Eosinophils # (Auto) 0.1, Basophils # (Auto) 0.0, Large Unclassified Cells % 2.7 , Large Unclassified Cells # 0.1, Anion Gap 5L, Glomerular Filtration Rate > 60.0, Blood Urea Nitrogen 14, Creatinine 1.29, Sodium Level 140, Potassium Level 4.0, Chloride Level 107, Carbon Dioxide Level 28, Calcium Level 9.0, Total Creatine Kinase 397H, Magnesium Level 2.3, Creatine Kinase MB 1.2, Creatine Kinase MB Relative Index 0.30, Troponin I < 0.02, B-Type Natriuretic Peptide < 5.0 02/13/17 18:07: Urine Amphetamines Screen NEGATIVE, Urine Benzodiazepines Screen NEGATIVE, Urine Opiates Screen NEGATIVE, Urine Methadone Screen NEGATIVE, Urine Barbiturates Screen NEGATIVE, Urine Phencyclidine Screen NEGATIVE, Urine Cocaine Metabolite Screen NEGATIVE, Urine Cannabinoids Screen POSITIVEH 02/13/17 19:58: Total Creatine Kinase 391H, Creatine Kinase MB 1.4, Creatine Kinase MB Relative Index 0.35, Troponin I < 0.02, Differential Slide Review Report, Differential Pathologist's Review COMPREHENSIVE REVIEW, Peripheral Blood Smear Path Consult PERIPHERAL SMEAR, Absolute Reticulocyte Count 73, Percent Reticulocyte Count 1.50, Reticulocyte Hgb Content (CHr) 30.7, Iron Level 97, Total Iron Binding Capacity 341, Transferrin % Saturation 28.4, Ferritin 71 02/14/17 03:48: Anion Gap 6L, Glomerular Filtration Rate > 60.0, Blood Urea Nitrogen 12, Creatinine 1.24, Sodium Level 140, Potassium Level 4.0, Chloride Level 106, Carbon Dioxide Level 28, Calcium Level 8.3L, Total Creatine Kinase 334H, Magnesium Level 2.0, Creatine Kinase MB 1.4, Creatine Kinase MB Relative Index 0.41, Troponin I < 0.02, Aspartate Amino Transf (AST/SGOT) 20, Alanine Aminotransferase (ALT/SGPT) 26, Alkaline Phosphatase 96, Total Bilirubin 0.2, Total Protein 7.3, Albumin 3.7, Albumin/Globulin Ratio 1.03 02/14/17 03:49: White Blood Count 3.7L, Red Blood Count 4.68, Hemoglobin 13.3L, Hematocrit 40.9L , Mean Corpuscular Volume 87.5, Mean Corpuscular Hemoglobin 28.4, Mean Corpuscular Hemoglobin Concent 32.5, Red Cell Distribution Width 12.9, Platelet Count 224, Neutrophils (%) (Auto) 36.1, Lymphocytes (%) (Auto) 52.2H, Monocytes (%) (Auto) 4.4, Eosinophils (%) (Auto) 4.6H, Basophils (%) (Auto) 0.5, Neutrophils # (Auto) 1.3L, Lymphocytes # (Auto) 1.9, Monocytes # (Auto) 0.2, Eosinophils # (Auto) 0.2, Basophils # (Auto) 0.0, Large Unclassified Cells % 2.3 , Large Unclassified Cells # 0.1 CBC/BMP Laboratory Tests 02/13/17 12:22 Red Blood Count 4.75, Mean Corpuscular Volume 86.8, Mean Corpuscular Hemoglobin 28.6, Mean Corpuscular Hemoglobin Concent 32.9, Red Cell Distribution Width 12.8 , Neutrophils (%) (Auto) 45.9, Lymphocytes (%) (Auto) 43.4, Monocytes (%) (Auto ) 4.0, Eosinophils (%) (Auto) 3.8 H, Basophils (%) (Auto) 0.2, Neutrophils # ( Auto) 1.7 L, Lymphocytes # (Auto) 1.6, Monocytes # (Auto) 0.1, Eosinophils # ( Auto) 0.1, Basophils # (Auto) 0.0, Calcium Level 9.0, Total Creatine Kinase 397 H 02/14/17 03:48 Calcium Level 8.3 L, Total Creatine Kinase 334 H, Aspartate Amino Transf (AST/ SGOT) 20, Alanine Aminotransferase (ALT/SGPT) 26, Alkaline Phosphatase 96, Total Bilirubin 0.2, Total Protein 7.3, Albumin 3.7 02/14/17 03:49 Red Blood Count 4.68, Mean Corpuscular Volume 87.5, Mean Corpuscular Hemoglobin 28.4, Mean Corpuscular Hemoglobin Concent 32.5, Red Cell Distribution Width 12.9 , Neutrophils (%) (Auto) 36.1, Lymphocytes (%) (Auto) 52.2 H, Monocytes (%) ( Auto) 4.4, Eosinophils (%) (Auto) 4.6 H, Basophils (%) (Auto) 0.5, Neutrophils # (Auto) 1.3 L, Lymphocytes # (Auto) 1.9, Monocytes # (Auto) 0.2, Eosinophils # (Auto) 0.2, Basophils # (Auto) 0.0 GME ATTESTATION GME ATTESTATION My preceptor for this patient encounter was Dr. Gallagher and he was physically present in the building during the encounter and was fully available. As needed , all aspects of the patient interview, examination, medical decision making process, and medical care plan development were reviewed and approved by the preceptor. Preceptor is aware and concurs with the plan as stated in the body of this note and will attest to such by his/her cosignature. FABRICIO FERNANDO DO Feb 14, 2017 11:08
[2017-02-14 23:52] VITALS: BP 158/78
--- NOTE | 2017-02-15 12:24 | ECHO ---
DATE OF PROCEDURE: 02/14/2017 REFERRING PHYSICIAN: Mina Gallagher MD INDICATIONS: Syncope, pulmonary embolism. Patient measures 175 cm and weighs 77 kg. DIMENSIONS IV is 0.9 LV 4.12 LVPW 1.1 LA 2.4 Aorta 2.9 FINDINGS: The study is of excellent technical quality. Left ventricle is of normal size and systolic function with estimated left ventricular ejection fraction of 60-65%. Right ventricle is also normal size and systolic function. Both atria now appear normal. All four cardiac valves were well seen and appeared normal. No pericardial effusion is noted. Aortic root, aortic arch and visualized segment of abdominal aorta all appear normal. Doppler interrogation reveals no aortic stenosis or insufficiency. There is trace mitral insufficiency and trace pulmonic insufficiency. Tricuspid valve is functionally competent and consequently estimation of pulmonary artery pressure was not done. Mitral inflow pattern and tissue Doppler imaging of mitral annulus reveal normal diastolic function. CONCLUSION: Normal echocardiogram. COMMENTS: SBE prophylaxis is not recommended. The study argues against hemodynamic significance of pulmonary embolism.
--- NOTE | 2017-02-15 16:33 | ECGEPIP ---
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
[2017-02-16 10:13] LABS: FOLATE 11.2 NG/ML (>5.4)
--- NOTE | 2017-03-20 07:38 | IPNPDOC ---
Subjective Date Seen Patient left AMA on 02/15/17 at 0300. Subjective Chief Complaint/HPI The patient is a 22-year-old male admitted with a reason for visit of Syncope. Events since last encounter Did not evaluate patient. Per nurses note patient signed out AMA. Was educated by nurse about risks and benefits of staying, but patient was unwilling to speak with physician or wait for discharge instructions. IV was discontinued per policy. Left with friend. Physician made aware. Objective Physical Examination Other physical findings No physical exam performed. Patient left AMA. Assessment /Plan Problems (1) Syncope Status: Acute Problem Text: Patient had reported blacking outs are passing out several times previous day. Has not happened since being in the ER. Patient was very fatigued due to not sleeping well. Denies lightheadedness and dizziness on exam. Patient doesn't have any significant past medical history to indicate causes syncope. Echocardiogram was ordered as well as an EEG. Results are pending. (2) Chest pain Status: Acute Problem Text: Initial cardiac labs were negative as well as repeats. Initial EKG did show early repolarization. Patient's mother of a myocardial infarction when patient was 6 years old. (3) Pulmonary embolism Problem Text: Patient was recently admitted to [facility] and diagnosed with pulmonary embolism on CTA. Patient was started on Elliquis. (4) Constipation Status: Acute Problem Text: Patient reports having a history of constipation and sometimes takes medications to help with this. Continue patient's home medications as needed. (5) Depression Problem Text: Patient had been on Paxil for several months for depression and adjustment disorder. Had lengthy discussion with patient today regarding patient 's past. Patient reported having mother diet very early in life. He also reported last year having his roommate while in college. This on top of going back to college and restarting his life has been very stressful and anxiety provoking last few months. She went on to PCP for some help the prescribed Paxil. Patient initially refused Paxil today but after discussion patient agreed to restarting Paxil and continuing at this time. Plan/VTE VTE Prophylaxis Ordered?: Yes (patient on eliquis) Plan Anticipated Discharge: AMA Patient left against medical advice at 0300 on 02/15/17. GME ATTESTATION GME ATTESTATION My preceptor for this patient encounter was Dr. Gallagher and he was physically present in the building during the encounter and was fully available. As needed , all aspects of the patient interview, examination, medical decision making process, and medical care plan development were reviewed and approved by the preceptor. Preceptor is aware and concurs with the plan as stated in the body of this note and will attest to such by his/her cosignature. FABRICIO FERNANDO DO Mar 20, 2017 07:38
== END 2017-02-15 03:05 | disposition left against medical advice (07) | DRG 204 ==
LOC: EDBD 12:02 → M ED 14:36 → M ED INP 16:32 → M PCU 02-14 13:42
PROVIDERS: ADMIT Internal Medicine; ATTEND Internal Medicine
DX: R55 Syncope and collapse (principal); D61.818 Other pancytopenia; K59.00 Constipation, unspecified; F32.9 Major depressive disorder, single episode, unspecified; Z86.711 Personal history of pulmonary embolism; F41.9 Anxiety disorder, unspecified; F17.210 Nicotine dependence, cigarettes, uncomplicated; R07.89 Other chest pain; F43.10 Post-traumatic stress disorder, unspecified; D64.9 Anemia, unspecified; Z79.899 Other long term (current) drug therapy

== ENCOUNTER 2017-05-14 11:50 | Emergency (ER) | payer MEDICAID, OTHER ==
[~2017-05-14] VITALS: Ht 180.3 cm; Wt 72.7 kg
[~2017-05-14 11:50] MED LIST changes: +OXYC1TAB23 PO; +PARO20TA3 PO
[2017-05-14] MEDS ORDERED: FOLI800C PO (12:01)
[2017-05-14] MEDS ORDERED: NS 1,000 ML IV ONE (12:30)
[2017-05-14] MEDS ORDERED: NORCO, ANEXSIA 5/325MG TABLET (HYDROcodone/ACETAMINOPHEN) PO ONE (12:30)
[2017-05-14 12:56] LABS: BASO % 0.4 % (0.0-1.0); EOS # 0.2 K/mm3 (0.0-0.50); EOS % 3.5 % (0.0-3.0); LARGE UNSTAINED CELL # 0.1 K/mm3 (0.0-0.4); LARGE UNSTAINED CELL % 2.7 % (0.0-4.0); LYMPH % 47.8 % (24.0-44.0); MEAN CORPUSCULAR HEMOGLOBIN 29.6 pg (27.0-33.0); MEAN CORPUSCULAR HGB CONC 33.5 g/dl (32.0-36.5); MEAN CORPUSCULAR VOLUME 88.3 fl (80.0-96.0); MONO # 0.2 K/mm3 (0.0-0.8); NEUTROPHILS # 1.8 K/mm3 (1.8-7.7); NEUTROPHILS % 41.6 % (36.0-66.0); PLATELET COUNT, AUTOMATED 245 k/mm3 (150-450); RED CELL DISTRIBUTION WIDTH 13.6 % (11.5-14.5); WHITE BLOOD COUNT 4.2 K/mm3 (4.0-10.0)
[2017-05-14 13:02] LABS: INR 1.04
[2017-05-14 13:25] LABS: ALBUMIN 4.2 GM/DL (3.2-5.2); ALBUMIN/GLOBULIN RATIO 1.17 (1.00-1.93); ALKALINE PHOSPHATASE 88 U/L (45-117); ALT/SGPT 38 U/L (12-78); ANION GAP 9 MEQ/L (8-16); AST/SGOT 24 U/L (15-37); BILIRUBIN,DIRECT < 0.1 MG/DL (0.0-0.2); BILIRUBIN,TOTAL 0.3 MG/DL (0.2-1.0); BLOOD UREA NITROGEN 17 MG/DL (7-18); CALCIUM LEVEL 9.2 MG/DL (8.5-10.1); CARBON DIOXIDE LEVEL 25 MEQ/L (21-32); CHLORIDE LEVEL 107 MEQ/L (98-107); CREATININE FOR GFR 1.28 MG/DL (0.70-1.30); GLOMERULAR FILTRATION RATE > 60.0 (>60); GLUCOSE, FASTING 68 MG/DL (70-105); POTASSIUM SERUM 4.6 MEQ/L (3.5-5.1); SODIUM LEVEL 141 MEQ/L (136-145); TOTAL PROTEIN 7.8 GM/DL (6.4-8.2)
[2017-05-14] MEDS ORDERED: ISOVUE-370 76% 100ML VIAL (Q9967) As Ordered ONE (13:42)
[2017-05-14 14:21] VITALS: BP 136/69
--- NOTE | 2017-05-14 15:06 | REP ---
CT pulmonary angiogram: With IV contrast. History: Rule out pulmonary embolism. Comparison studies: February 10, 2017. Contrast dose: 75 cc's of Isovue [address] technique: Helical scanning is acquired and overlapping 1.5 mm and contiguous 3 mm axial images are reformatted. In addition, a 3-D work station is deployed to generate thick slab maximum intensity projection images in sagittal and coronal imaging projections. CT pulmonary angiographic findings: There is good opacification of the pulmonary arterial tree. There is no CT evidence of pulmonary embolism today. Maximum intensity projection images show no vessel cutoff or filling defect. The thoracic aorta enhances homogeneously and is normal in caliber and contour. No hilar or mediastinal mass or adenopathy is seen. No pleural or pericardial effusion is seen. The visualized upper abdominal structures are unremarkable. The lung merino are clear. Impression: Negative CT pulmonary angiogram. No CT evidence of pulmonary embolus today. Signed by Nadir Oglesby MD 05/15/2017 10:03 A
--- NOTE | 2017-05-15 08:13 | ECGEPIP ---
Stationary ECG Study [facility] - ED Test Date: 2017-05-14 Pat Name: PARADISE CRAFT Department: Room: - Gender: M Nurse Wound: JJordon : 1995 Requested By: MARTINEZ Conrad PA-C Order Number: [id number] Reading MD: Luc Oviedo Measurements Intervals [place] Rate: 54 P: 15 ID: [id number] QRS: 47 QRSD: 91 T: 30 QT: 378 QTc: 361 Interpretive Statements SINUS BRADYCARDIA WITH SINUS ARRHYTHMIA EARLY REPOLARIZATION SIMILAR TO 02/14/17 Electronically Signed On 05-15-2017 8:13:19 EDT by Luc Oviedo
== END 2017-05-14 14:22 | disposition home or self-care (01) ==
LOC: M ED 11:50
DX: R07.1 Chest pain on breathing (principal); F43.10 Post-traumatic stress disorder, unspecified; J45.909 Unspecified asthma, uncomplicated; D68.51 Activated protein C resistance; Z86.711 Personal history of pulmonary embolism; Z79.01 Long term (current) use of anticoagulants; Z87.891 Personal history of nicotine dependence; Z82.49 Family history of ischemic heart disease and other diseases of the circulatory system
CPT/HCPCS: 36415; 71275; 80048; 80076; 82550; 82553; 85025; 85379; 85610; 85730; 93005; 96360; 99283; Q9967

== ENCOUNTER 2017-05-18 14:51 | Emergency (ER) | payer OTHER ==
[~2017-05-18] VITALS: Ht 180.3 cm; Wt 72.7 kg
[~2017-05-18 14:51] MED LIST changes: +FOLI800C PO
[2017-05-18] MEDS ORDERED: PERCOCET 5MG/325MG TAB PO ONE (17:45)
--- NOTE | 2017-05-18 17:55 | REP ---
Clinical: Pain. Technique: AP, lateral, bilateral oblique and sunrise views right knee . Findings: The osseous structures and joint spaces are intact and normal. There is no evidence for acute fracture or dislocation. No joint effusion is appreciated. Surrounding soft tissues are unremarkable. No subcutaneous emphysema or radiodense foreign body. Impression: Normal right knee examination. No acute fracture or dislocation. Signed by Edinson Gandhi MD 05/18/2017 05:47 P
--- NOTE | 2017-05-18 18:11 | REP ---
Clinical: Bilateral pain and swelling with history of pulmonary embolus . Technique: Reese scale and color Doppler evaluation using linear high frequency transducer. Findings: Ultrasound examination of the right and left lower extremity deep venous structures from the common femoral vein to the popliteal vein demonstrates normal compressibility flow and wave patterns in response to respiration and augmentation. There is no evidence for deep venous thrombosis. Incidental note is made of duplicated mid to distal superficial femoral veins bilaterally. Impression: No evidence for deep venous thrombosis bilaterally. Signed by Eidnson Gandhi MD 05/18/2017 06:01 P
[2017-05-18 18:13] LABS: BASO % 0.5 % (0.0-1.0); EOS # 0.2 K/mm3 (0.0-0.50); EOS % 3.5 % (0.0-3.0); LARGE UNSTAINED CELL # 0.1 K/mm3 (0.0-0.4); LARGE UNSTAINED CELL % 1.5 % (0.0-4.0); LYMPH # 1.8 K/mm3 (1.5-6.5); LYMPH % 29.9 % (24.0-44.0); MEAN CORPUSCULAR HEMOGLOBIN 28.1 pg (27.0-33.0); MEAN CORPUSCULAR HGB CONC 32.4 g/dl (32.0-36.5); MONO # 0.3 K/mm3 (0.0-0.8); MONO % 4.4 % (0.0-5.0); NEUTROPHILS # 3.5 K/mm3 (1.8-7.7); NEUTROPHILS % 60.2 % (36.0-66.0); PLATELET COUNT, AUTOMATED 218 k/mm3 (150-450); RED CELL DISTRIBUTION WIDTH 14.1 % (11.5-14.5); WHITE BLOOD COUNT 5.8 K/mm3 (4.0-10.0)
[2017-05-18 18:44] LABS: ANION GAP 7 MEQ/L (8-16); BLOOD UREA NITROGEN 14 MG/DL (7-18); CALCIUM LEVEL 8.4 MG/DL (8.5-10.1); CARBON DIOXIDE LEVEL 27 MEQ/L (21-32); CHLORIDE LEVEL 109 MEQ/L (98-107); CREATININE FOR GFR 1.14 MG/DL (0.70-1.30); GLOMERULAR FILTRATION RATE > 60.0 (>60); GLUCOSE, FASTING 80 MG/DL (70-105); POTASSIUM SERUM 4.1 MEQ/L (3.5-5.1); SODIUM LEVEL 143 MEQ/L (136-145)
[2017-05-18 19:27] VITALS: BP 138/80
== END 2017-05-18 19:34 | disposition home or self-care (01) ==
LOC: EDBD 14:51 → M ED 14:51
DX: M79.661 Pain in right lower leg (principal); M79.662 Pain in left lower leg; D68.59 Other primary thrombophilia; I26.99 Other pulmonary embolism without acute cor pulmonale; J45.909 Unspecified asthma, uncomplicated; F41.9 Anxiety disorder, unspecified; F32.9 Major depressive disorder, single episode, unspecified; F43.10 Post-traumatic stress disorder, unspecified; K59.03 Drug induced constipation; Z82.49 Family history of ischemic heart disease and other diseases of the circulatory system; Z79.01 Long term (current) use of anticoagulants; Z79.899 Other long term (current) drug therapy

== ENCOUNTER → 2017-07-28 | Outpatient (REF) | payer OTHER | LOC: M LAB REF 16:33 | PROVIDERS: ATTEND Physician Assistant | DX: R30.0 Dysuria (principal) ==

== ENCOUNTER 2017-08-28 18:45 | Emergency (ER) | payer OTHER ==
[~2017-08-28] VITALS: Ht 180.3 cm; Wt 75.0 kg
[2017-08-28 19:38] LABS: MEAN CORPUSCULAR HEMOGLOBIN 28.1 pg (27.0-33.0); MEAN CORPUSCULAR HGB CONC 32.5 g/dl (32.0-36.5); MEAN CORPUSCULAR VOLUME 86.4 fl (80.0-96.0); PLATELET COUNT, AUTOMATED 264 10^3/uL (150-450); RED CELL DISTRIBUTION WIDTH 13.4 % (11.5-14.5); WHITE BLOOD COUNT 8.9 10^3/uL (4.0-10.0)
[2017-08-28 19:56] LABS: ALBUMIN 5.1 GM/DL (3.2-5.2); ALBUMIN/GLOBULIN RATIO 1.31 (1.00-1.93); ALKALINE PHOSPHATASE 89 U/L (45-117); ALT/SGPT 36 U/L (12-78); ANION GAP 13 MEQ/L (8-16); AST/SGOT 32 U/L (7-37); BILIRUBIN,DIRECT < 0.1 MG/DL (0.0-0.2); BILIRUBIN,TOTAL 0.2 MG/DL (0.2-1.0); BLOOD UREA NITROGEN 10 MG/DL (7-18); CALCIUM LEVEL 8.8 MG/DL (8.5-10.1); CARBON DIOXIDE LEVEL 22 MEQ/L (21-32); CHLORIDE LEVEL 109 MEQ/L (98-107); CREATININE FOR GFR 1.31 MG/DL (0.70-1.30); GLOMERULAR FILTRATION RATE > 60.0 (>60); GLUCOSE, FASTING 62 MG/DL (70-105); POTASSIUM SERUM 3.8 MEQ/L (3.5-5.1); SODIUM LEVEL 144 MEQ/L (136-145)
[2017-08-28 20:01] LABS: METHADONE URINE NEGATIVE (NEGATIVE)
[2017-08-29 02:20] VITALS: BP 138/85
== END 2017-08-29 02:22 | disposition home or self-care (01) ==
LOC: M ED 18:45
DX: F10.129 Alcohol abuse with intoxication, unspecified (principal); F12.10 Cannabis abuse, uncomplicated; F69 Unspecified disorder of adult personality and behavior; I82.90 Acute embolism and thrombosis of unspecified vein; J45.909 Unspecified asthma, uncomplicated; Z79.01 Long term (current) use of anticoagulants; Z79.899 Other long term (current) drug therapy

== ENCOUNTER 2017-09-01 13:27 | Emergency (ER) | payer OTHER ==
[~2017-09-01] VITALS: Ht 177.8 cm; Wt 72.0 kg
[2017-09-01] MEDS ORDERED: CITA20TA4 PO (13:38)
[2017-09-01 14:07] LABS: BASO % 0.3 % (0.0-1.0); EOS # 0.1 10^3/uL (0.0-0.50); EOS % 2.3 % (0.0-3.0); IMMATURE GRANULOCYTE % 0.3 % (0-0); LYMPH # 1.9 10^3/uL (1.5-6.5); LYMPH % 49.1 % (24.0-44.0); MEAN CORPUSCULAR HEMOGLOBIN 27.8 pg (27.0-33.0); MEAN CORPUSCULAR HGB CONC 32.7 g/dl (32.0-36.5); MONO # 0.3 10^3/uL (0.0-0.8); MONO % 7.5 % (0.0-5.0); NEUTROPHILS # 1.6 10^3/uL (1.8-7.7); NEUTROPHILS % 40.5 % (36.0-66.0); PLATELET COUNT, AUTOMATED 221 10^3/uL (150-450); RED CELL DISTRIBUTION WIDTH 13.8 % (11.5-14.5); WHITE BLOOD COUNT 3.9 10^3/uL (4.0-10.0)
[2017-09-01 14:17] LABS: INR 1.07
[2017-09-01 15:32] VITALS: BP 139/74
== END 2017-09-01 15:34 | disposition home or self-care (01) ==
LOC: EDBD 13:27 → M ED 13:27
DX: R58 Hemorrhage, not elsewhere classified (principal); T45.515A Adverse effect of anticoagulants, initial encounter; Y92.9 Unspecified place or not applicable; Y93.9 Activity, unspecified; Z79.01 Long term (current) use of anticoagulants; Z79.899 Other long term (current) drug therapy